=== PATIENT | male | born 1975 | race African-American/Black ===

== ENCOUNTER 2017-04-06 04:39 | Emergency (ER) | payer MEDICAID ==
[~2017-04-06] VITALS: Ht 182.9 cm; Wt 90.0 kg
[2017-04-06] MEDS ORDERED: FAMOTIDINE 20MG/2ML VIAL IV STA (06:02)
[2017-04-06] MEDS ORDERED: SODIUM CHLORIDE 0.9% 1,000 ML IV ONE (06:02)
[2017-04-06] MEDS ORDERED: ONDANSETRON HCL 4MG/2ML VIAL IV STA (06:02)
[2017-04-06] MEDS ORDERED: LORAZEPAM 1MG TABLET PO ONE (06:15)
[2017-04-06] MEDS ORDERED: MORPHINE SULFATE 4 MG/ML CPJ (NOT FOR IM USE) IV ONE (06:15)
[2017-04-06 06:39] LABS: BASOPHILS % 0.3 % (0.0-2.0); EOSINOPHILS % 0.6 % (0.0-5.0); HEMATOCRIT. 41.8 % (42.0-52.0); LYMPHOCYTES % 16.1 % (20.0-50.0); MEAN CORPUSCULAR VOLUME 92.5 fL (80.0-94.0); MEAN PLATELET VOLUME 8.4 fl (7.4-10.4); MONOCYTES % 11.3 % (2.0-8.0); NEUTROPHILS % 71.7 % (40.0-76.0); PLATELET 114 x1000/uL (130-400); RED BLOOD CELL COUNT 4.51 mill/uL (4.7-6.1); RED CELL DISTRIBUTION WIDTH 16.7 % (11.6-14.6)
[2017-04-06 06:41] LABS: PROTHROMBIN TIME 10.4 sec (9.4-11.6)
[2017-04-06 06:45] LABS: CLARITY URINE CLEAR (CLEAR); COLOR URINE YELLOW (YELLOW); GLUCOSE URINE NEGATIVE (NEGATIVE); KETONES URINE TRACE (NEGATIVE); LEUKOCYTE ESTERASE URINE NEGATIVE (NEGATIVE); NITRITE URINE NEGATIVE (NEGATIVE); OCCULT BLOOD URINE NEGATIVE (NEGATIVE); PH URINE 6.5 (4.5-8.0); PROTEIN URINE 1+ (NEGATIVE); SPECIFIC GRAVITY URINE 1.015 (1.005-1.030); UROBILINOGEN URINE 0.2 E.U./dL (0.2-1.0)
[2017-04-06 06:47] LABS: CARBON DIOXIDE 24 mEq/L (21-32); CHLORIDE 103 mEq/L (98-107)
[2017-04-06 06:48] LABS: ETHANOL BLOOD < 10 mg/dL; TROPONIN I < 0.02 ng/mL (0.00-0.04)
[2017-04-06 07:25] LABS: *AMPHETAMINES SCREEN URINE NEGATIVE (NEGATIVE); *BARBITURATES SCREEN URINE NEGATIVE (NEGATIVE); *BENZODIAZEPINES SCREEN URINE NEGATIVE (NEGATIVE); *COCAINE SCREEN URINE NEGATIVE (NEGATIVE); CANNABINOID URINE SCREEN NEGATIVE (NEGATIVE); METHADONE URINE SCREEN NEGATIVE (NEGATIVE); OPIATES URINE SCREEN NEGATIVE (NEGATIVE); PHENCYCLIDINE URINE SCREEN NEGATIVE (NEGATIVE)
[2017-04-06] MEDS ORDERED: ONDANSETRON 4MG ODT PO ONE (08:15)
[2017-04-06 08:40] VITALS: BP 150/88
[2017-04-06] MEDS ORDERED: FAMOTIDINE 20MG TABLET PO ONE (09:15)
== END 2017-04-06 09:38 | disposition left against medical advice (07) ==
LOC: ER 04:39
DX: R10.13 Epigastric pain (principal); R11.2 Nausea with vomiting, unspecified; F10.20 Alcohol dependence, uncomplicated; I10 Essential (primary) hypertension; F43.10 Post-traumatic stress disorder, unspecified; F12.10 Cannabis abuse, uncomplicated
CPT/HCPCS: 36415; 71010; 80053; 80305; 81001; 83690; 84484; 85025; 85610; 85730; 93005; 99285; G0482; Q0162; Z7610; J7030

== ENCOUNTER 2017-09-11 17:31 | Emergency (ER) | payer MEDICAID ==
[~2017-09-11] VITALS: Ht 185.4 cm; Wt 91.0 kg
[2017-09-11 17:41] VITALS: BP 130/100
[2017-09-11] MEDS ORDERED: LIBRIUM (17:41)
[2017-09-11] MEDS ORDERED: ATIVAN (17:41)
== END 2017-09-11 18:20 | disposition left against medical advice (07) ==
LOC: ER 17:40
DX: Z53.21 Procedure and treatment not carried out due to patient leaving prior to being seen by health care provider (principal)

== ENCOUNTER 2017-10-27 16:26 | Emergency (ER) | payer MEDICAID ==
[~2017-10-27] VITALS: Ht 188 cm; Wt 106.0 kg
[~2017-10-27 16:26] MED LIST: ATIVAN; LIBRIUM
[2017-10-27 16:27] VITALS: BP 128/74
== END 2017-10-27 19:20 | disposition left against medical advice (07) ==
LOC: ER 16:26
DX: F10.229 Alcohol dependence with intoxication, unspecified (principal); F17.200 Nicotine dependence, unspecified, uncomplicated; F12.10 Cannabis abuse, uncomplicated; Y90.9 Presence of alcohol in blood, level not specified
CPT/HCPCS: 99283